=== PATIENT | male | born 1995 | race African-American/Black ===

== ENCOUNTER → 2024-06-05 | Outpatient (CLI) | payer OTHER | LOC: M RAD 15:03 | PROVIDERS: ATTEND Physician Assistant | DX: M25.532 Pain in left wrist (principal); R93.6 Abnormal findings on diagnostic imaging of limbs ==

== ENCOUNTER → 2024-07-17 | Outpatient (CLI) | payer OTHER | LOC: M SOG 07:52 | PROVIDERS: ATTEND Physician Assistant | DX: M25.532 Pain in left wrist (principal); M25.531 Pain in right wrist ==

== ENCOUNTER 2024-08-25 08:49 | Day surgery (SDC) | payer OTHER ==
[~2024-08-25] VITALS: Ht 175.3 cm; Wt 86.9 kg
[~2024-08-25 08:49] MED LIST: LIDOCAINE 2% 100MG/5ML SDV (FOR ANES.) As Ordered ONE; MIDAZOLAM INJ 2MG/2ML VIAL As Ordered ONE; fentaNYL 100 MCG/2 ML INJECTION As Ordered ONE; propofoL 200 MG/20 ML VIAL As Ordered ONE
[2024-08-25] MEDS ORDERED: fentaNYL 100 MCG/2 ML INJECTION IV PRN ×2 (09:30→12:30)
[2024-08-25] MEDS ORDERED: LR 1,000 ML IV SCH (09:50)
[2024-08-25] MEDS ORDERED: ceFAZolin SOD 2 GM IV ONCE IV ONE (10:10)
[2024-08-25] MEDS: MIDAZOLAM INJ 2MG/2ML VIAL IV PRN (10:17)
[2024-08-25] MEDS: LIDOCAINE 1% SDV 5ML VIAL PN ONE (10:20)
[2024-08-25] MEDS: dexAMETHasone 10MG/1ML VIAL PRES.FREE PN ONE (10:20)
[2024-08-25] MEDS: ROPIvacaine 0.5% 30ML VIAL PN ONE (10:20)
[2024-08-25] MEDS: ceFAZolin SODIUM 2 GM VIAL As Ordered ONE (11:10)
[2024-08-25] MEDS ORDERED: KETOROLAC 30 MG/ML 1ML VIAL As Ordered ONE (11:57)
[2024-08-25] MEDS ORDERED: ONDANSETRON 4MG 2ML VIAL As Ordered ONE (11:57)
[2024-08-25] MEDS ORDERED: oxyCODONE 5MG TAB PO PRN (12:30)
[2024-08-25] MEDS ORDERED: HYDROMORPHONE HCL 0.5 MG/ 0.5 ML SYRINGE IV PRN (12:30)
[2024-08-25] MEDS: BACITRACIN OINTMENT 30GM TUBE As Ordered ONE (12:34)
[2024-08-25] MEDS ORDERED: PERC5TAB12 PO (13:06)
[2024-08-25 15:00] VITALS: BP 135/88; TEMP 98; O2SAT 96
== END 2024-08-25 15:04 | disposition home or self-care (01) ==
LOC: M SDC 08:49
PROVIDERS: ATTEND Orthopaedic Surgery Hand Surgery
DX: S63.512A Sprain of carpal joint of left wrist, initial encounter (principal); S62.102A Fracture of unspecified carpal bone, left wrist, initial encounter for closed fracture; X58.XXXA Exposure to other specified factors, initial encounter; Y92.9 Unspecified place or not applicable; Y93.9 Activity, unspecified; Y99.9 Unspecified external cause status
CPT/HCPCS: 11012; 25320; 76000; C1713; J0690; J1100; J1885; J2250; J2405; J2795; J3010

== ENCOUNTER → 2024-09-02 | Outpatient (CLI) | payer OTHER ==
[~2024-09-02] MED LIST changes: +AMOX875T PO; -LIDOCAINE 2% 100MG/5ML SDV (FOR ANES.) As Ordered ONE; -MIDAZOLAM INJ 2MG/2ML VIAL As Ordered ONE; +PERC5TAB12 PO; -fentaNYL 100 MCG/2 ML INJECTION As Ordered ONE; -propofoL 200 MG/20 ML VIAL As Ordered ONE
== END ==
LOC: M SOG 07:53
PROVIDERS: ATTEND Physician Assistant
DX: S63.592A Other specified sprain of left wrist, initial encounter (principal); W18.30XA Fall on same level, unspecified, initial encounter; Y92.009 Unspecified place in unspecified non-institutional (private) residence as the place of occurrence of the external cause

== ENCOUNTER 2024-09-04 18:35 | Emergency (ER) | payer OTHER ==
[~2024-09-04] VITALS: Ht 175.3 cm; Wt 87.0 kg
[~2024-09-04 18:35] MED LIST changes: -AMOX875T PO
[2024-09-04] MEDS ORDERED: AMOX875T PO (20:19)
[2024-09-04 20:30] VITALS: BP 127/71; TEMP 97.1; O2SAT 96
[2024-09-04] MEDS: AMOXICILLIN 500 MG CAP PO ONE (20:47)
== END 2024-09-04 20:52 | disposition home or self-care (01) ==
LOC: M ED 18:35
DX: J02.9 Acute pharyngitis, unspecified (principal); Z79.2 Long term (current) use of antibiotics

== ENCOUNTER → 2024-10-28 | Outpatient (CLI) | payer OTHER ==
[~2024-10-28] MED LIST changes: +AMOX875T PO
== END ==
LOC: M SOG 06:56
PROVIDERS: ATTEND Physician Assistant
DX: S63.592A Other specified sprain of left wrist, initial encounter (principal); W18.30XA Fall on same level, unspecified, initial encounter; Y92.009 Unspecified place in unspecified non-institutional (private) residence as the place of occurrence of the external cause